=== PATIENT | female | born 1955 | race Caucasian/White ===

== ENCOUNTER → 2016-12-17 | Outpatient (CLI) | payer BC ==
[~2016-12-17] MED LIST: BISOPROLOL-HCT1 EACH PO; IBUPROFEN600 MG PO; LORTAB 10/500 T1 TAB PO; OMEPRAZOLE40 M1 PO; PRILOSEC PO; ZIAC1 TAB 2.5/ PO
--- NOTE | ~2016-12-17 | MY11 ---
[facility]. [facility] A Service of [facility] & [facility] RADIOLOGY TEXT RESULTS PATIENT: VU BELL LOCATION: [facility] : 53 UNIT #: [id number] AGE: [address]: SRIDEVI SEPULVEDA MD ([facility]) SEX: F ORDER DR: [id number] [address] [address] [id number] O MR#: [id number] Acc #: [id number] NAME: VU BELL : 1955 SEX: F STUDY DATE/TIME: 12/17/2016 15:54 UNIT: [facility] ROOM: STUDY DESCRIPTION: MY Mammogram Screening Dig Darrin Attending Physician: Sridevi Sepulveda M.D. Referring Physician: Sridevi Sepulveda M.D. Ordering Physician: Sridevi Sepulveda M.D. Primary Care Physician: Sridevi Sepulveda M.D. MEDICAL IMAGING REPORT This report is preliminary unless electronic signature is present. EXAM Bilateral digital screening mammogram with CAD, 12/17/2016 INDICATION 61-year-old female for routine screening. No reported problems and no personal history of breast cancer. Family history positive in a maternal cousin. No surgeries. TECHNIQUE CC and MLO views of the breasts were obtained and reviewed with an FDA-approved CAD device. COMPARISON 08/16/2014, 08/10/2013 and 04/24/2012 FINDINGS Breast parenchyma is composed of scattered fibroglandular densities and the pattern is unchanged. There is no new dominant nodule, mass or suspicious cluster of microcalcifications. The CAD system has marked an 8.0 mm asymmetry in the upper outer hemisphere right breast. This may simply be a summation artifact but appears new compared to all prior comparison studies performed with digital technique. Suggest further evaluation with compression views and a true lateral view. If an abnormality persists, it should be further assessed with ultrasound. IMPRESSION Asymmetry in the right breast that may be artifactual or represent a summation artifact but warrants further evaluation with additional views and potentially a breast ultrasound. Patients over the age of 40 are entered into a reminder system with target due date for the next mammogram. A result letter will also be sent to the patient. [facility] A Service of [facility] RADIOLOGY TEXT RESULTS PATIENT: VU BELL LOCATION: [facility] : 53 UNIT #: [id number] AGE: [address]: SRIDEVI SEPULVEDA MD ([facility]) SEX: F ORDER DR: BIRADS 0 Incomplete: Need Additional Imaging Evaluation and/or Prior Mammograms for Comparison Dictated by... Donis Marshall M.D. THIS IS AN ELECTRONICALLY VERIFIED REPORT Donis Marshall M.D. at 12/18/2016 11:20 AM Tory TD: 12/18/2016 10:26 JOB #: [id number] MEDICAL IMAGING REPORT
== END | disposition home or self-care (01) ==
LOC: SMAM 15:05
DX: Z12.31 Encounter for screening mammogram for malignant neoplasm of breast (principal); N64.89 Other specified disorders of breast; Z80.3 Family history of malignant neoplasm of breast
CPT/HCPCS: G0202